=== PATIENT | female | born 1945 | race Caucasian/White ===

== ENCOUNTER 2018-08-14 18:49 | Emergency (ER) | payer MEDICARE ==
[~2018-08-14] VITALS: Ht 152.4 cm; Wt 81.6 kg
[2018-08-14 18:53] VITALS: BP_SYST 152
[2018-08-14] MEDS ORDERED: KETOROLAC TROMETHAMINE 30 MG VIAL IM ONE (21:00)
[2018-08-14 23:02] VITALS: BP_SYST 138
== END 2018-08-14 23:02 | disposition home or self-care (01) ==
LOC: SED 18:49
DX: S33.5XXA Sprain of ligaments of lumbar spine, initial encounter (principal); Z88.0 Allergy status to penicillin; W07.XXXA Fall from chair, initial encounter; Y93.89 Activity, other specified; Y92.89 Other specified places as the place of occurrence of the external cause; Y99.8 Other external cause status
CPT/HCPCS: 71045; 72100; 72170; 96372; 99283; J1885